=== PATIENT | female | born 1950 | race Caucasian/White ===

== ENCOUNTER 2017-07-05 10:23 | Emergency (ER) | payer MEDICARE, OTHER ==
[~2017-07-05] VITALS: Ht 162.6 cm; Wt 68.0 kg
[~2017-07-05 10:23] MED LIST: ANAS1 PO; ATOR10 PO; CYCL0.05OP OU; EFFEXOR PO; GABA300 PO; LEVOXYL PO; LEVSOD100 PO; LEVSOD75 PO; MULVITMIND PO; Multivitamin1 EAC1 PO; Percocet 5-3251 EACH PO; RXTRAM50 PO; SERT50 PO; STOMUL PO; TRAM50 PO; VENL150ER PO; VENL75ER PO; VITAMIN D3 PO; [UNRECOGNIZED DRUG - CODE] PO
[2017-07-05] MEDS ORDERED: Norco 5-325 Ta1 EACH PO (11:35)
== END 2017-07-05 11:40 | disposition home or self-care (01) ==
LOC: ER 10:23
DX: S20.212A Contusion of left front wall of thorax, initial encounter (principal); E03.9 Hypothyroidism, unspecified; F32.9 Major depressive disorder, single episode, unspecified; Z79.899 Other long term (current) drug therapy; V89.9XXA Person injured in unspecified vehicle accident, initial encounter
CPT/HCPCS: 71046; 99283; J1885

== ENCOUNTER 2019-12-11 06:12 | Day surgery (SDC) | payer MEDICARE, OTHER ==
[~2019-12-11] VITALS: Ht 162.6 cm; Wt 65.6 kg
[~2019-12-11 06:12] MED LIST changes: +ATOR20 PO; +CALCIUM PO; +CENTRUM SILVER1 EAC2 PO; +DICLOFENAC SOD100 G1 TOP; +DOCU100 PO; +NAPR500ERA PO; +Norco 5-325 Ta1 EACH PO; +YUVAFEM10 MCG VAG
--- NOTE | 2019-12-11 09:35 | NUR ---
Dressing to procedure site clean, dry, intact with no visible drainage, swelling, erythema or bruising noted. PT HAS TOLERATED CRACKERS, PUDDING AND WATER. PO PAIN MEDICATIONS PROVIDED. ICE PACK APPLIED. WILL CONTINUE TO MONITOR FOR IMPROVEMENT OF PAIN MANAGEMENT
--- NOTE | 2019-12-11 09:45 | NUR ---
PT REPORTS PAIN IS STILL 10/18. REQUESTED IS TO BE REMOVED C/O FEELING TO HEAVY ON HER BELLY. PT GIVEN SUBLIMAZE 25MCG SLOW IV PUSH.
--- NOTE | 2019-12-11 10:21 | NUR ---
Discharge instructions reviewed with patient. Patient verbalizes understanding. Copy given to patient to take home. Dressing to procedure site clean, dry, intact with no visible drainage, swelling, erythema or bruising noted. Patient States Post-Procedure ride home has been arranged. Discharged via wheelchair to private car for ride home.
--- NOTE | 2019-12-11 10:30 | NUR ---
pt reports pain improving. States pain in 5/10
== END 2019-12-11 10:30 | disposition home or self-care (01) ==
LOC: ORSCMMR 06:12 → ORD 07:30 → ORSCMMR 07:30
PROVIDERS: Surgery
PROC: 0FT44ZZ Resection of Gallbladder, Percutaneous Endoscopic Approach (ICD-10-PCS; principal; 2019-12-11 07:30)
PROC: BF031ZZ Plain Radiography of Gallbladder and Bile Ducts using Low Osmolar Contrast (ICD-10-PCS; principal; 2019-12-11 07:30)
DX: K80.10 Calculus of gallbladder with chronic cholecystitis without obstruction (principal); Z79.899 Other long term (current) drug therapy
CPT/HCPCS: 74300; 88304; A9270-GY; C1729; J0690; J1100; J1885; J2250; J2370; J2405; J2704; J2710; J3010; J7120

== ENCOUNTER 2021-02-13 11:13 | Observation (INO) | payer MEDICARE, OTHER ==
[~2021-02-13] VITALS: Ht 162.6 cm; Wt 69.6 kg
--- NOTE | 2021-02-13 12:16 | NUR ---
Ambulatory in Day Surgery. History, Chart, Medications and Allergies reviewed before start of procedure. Lungs clear T/O to Auscultation. Patient confirms NPO status and agrees with scheduled surgery. Pre-Op teaching done. Pt verbalizes understanding.
--- NOTE | 2021-02-13 17:09 | NUR ---
PT ARRIVED TO THE ROOM AT 1655. PT ALERT AND ORIENTED. SHE RATES HER PAIN AT 2/10 AND STATES PAIN IS TOLERABLE. TOLERATING PO. VSS. WILL MONITOR UNTIL REPORT TO JAVIER PINA.
--- NOTE | 2021-02-13 18:08 | NUR ---
SHIFT SUMMARY PT IS POD#0 FROM R SHAYNA. SHE ARRIVED TO THE ROOM AT 1655 FROM PACU. PT IS TOLERATING PO. PAIN MANAGED. PT IS REGAINING FEELING AND MOVEMENT TO BLE. VSS. WILL MONITOR UNTIL REPORT TO JAVIER PINA.
--- NOTE | 2021-02-14 04:12 | NUR ---
SHIFT SUMMARY POD1 R TOTAL HIP ARTHROPLASTY. AQUACEL IN PLACE C/D/I, POLAR PACK IN PLACE. AMBULATING WELL TO THE BATHROOM WITH STAND BY ASSIST, WALKER AND GAIT BELT. VOIDING WELL. TOLERATING PO INTAKE. PAIN BEING MANAGED PER EMAR. WILL REPORT TO ONCOMING RN.
[2021-02-14 04:23] LABS: BASOPHILS ABSOLUTE AUTO 0.01 K/mm3 (0.00-0.23); BASOPHILS PERCENT AUTO 0 % (0-2); EOSINOPHILS PERCENT AUTO 0 % (0-6); Hematocrit 32.7 % (33.0-51.0); Hemoglobin 11.4 g/dL (11.5-16.0); IMMATURE GRAN ABSOLUTE AUTO 0.05 K/mm3 (0.00-0.10); IMMATURE GRAN PERCENT AUTO 0 % (0-1); LYMPHOCYTES ABSOLUTE AUTO 0.63 K/mm3 (0.84-5.20); LYMPHOCYTES PERCENT AUTO 5 % (21-46); MONOCYTES ABSOLUTE AUTO 0.79 K/mm3 (0.16-1.47); MONOCYTES PERCENT AUTO 7 % (4-13); Mean Corpuscular HGB 31.1 pg (26.0-34.0); Mean Corpuscular HGB Conc 34.9 g/dL (31.5-36.5); Mean Corpuscular Volume 89 fL (80-100); Mean Platelet Volume 9.2 fL (9.1-12.4); NEUTROPHILS ABSOLUTE AUTO 10.18 K/mm3 (1.96-9.15); NEUTROPHILS PERCENT AUTO 87 % (41-73); Platelet Count 231 K/mm3 (150-400); RDW Coefficient Variation 12.5 % (11.7-14.2); RDW Standard Deviation 41.4 fL (35.1-46.3); Red Blood Cell Count 3.66 M/mm3 (3.80-5.20); White Blood Cell Count 11.66 K/mm3 (4.00-11.30)
[2021-02-14 05:27] LABS: Anion Gap 7 mmol/L (6-16); Blood Urea Nitrogen 11 mg/dL (8-24); Bun/Creatinine Ratio 14.3 (12.0-20.0); CO2, Blood 27 mmol/L (21-32); Calcium, Blood 8.8 mg/dL (8.5-10.1); Chloride, Blood 106 mmol/L (98-108); Creatinine, Blood 0.77 mg/dL (0.40-1.00); Glomerular Filtration Rate >60 (60-); Glucose, Blood 127 mg/dL (70-99); Magnesium, Blood 1.9 mg/dL (1.6-2.4); Potassium, Blood 4.7 mmol/L (3.5-5.5); Sodium, Blood 140 mmol/L (136-145)
--- NOTE | 2021-02-14 07:35 | NUR ---
LOW BP PHYSICAL THERAPY ATTEMPTED TO WORK WITH PT THIS AM. SHE REPORTED TO THIS RN THAT BP WAS 60/44 AND PT WAS DIZZY. UPON ENTERING THE ROOM THE PT WAS SITTING IN THE CHAIR WITH HER LEGS IN A DEPENDENT POSITION. SHE WAS PALE AND SLOW TO RESPOND BUT STILL ORIENTED. SHE REPORTED FEELING DIZZY. PT WAS LIFTED FROM THE CHAIR BACK TO BED AND PLACED IN [place] POSITION. BP STARTED TO RECOVER TO 93/64 WITH HR OF 76 AT 0739. NORMAL SALINE STARTED AND ATTEMPTED TO CONTACT DR. PEDRAZA BY PHONE AT 0745. HER OFFICE PHONE WAS CALLED AT 0800. DR. CHEN WAS CALLED AT APPROXIMATELY [address] PEDRAZA RETURNED CALL SHORTLY AFTER THIS R SPOKE WITH DR. CHEN. DR. MCGEE CALLED FOR MEDICAL CONSULT, MESSAGE LEFT AND WAITING FOR A RETURN CALL. PT IS ALERT AND ORIENTED. SITTING UP EATING BREAKFAST. BP IS STILL LOW BUT PT DENIES FEELING DIZZY, PALOR HAS IMPROVED. WILL CONTINUE TO MONITOR.
[2021-02-14] MEDS ORDERED: ACET500 PO (11:42)
[2021-02-14] MEDS ORDERED: ASPI81CH PO (11:43)
[2021-02-14] MEDS ORDERED: OXYC5 PO (11:44)
--- NOTE | 2021-02-14 14:14 | NUR ---
DR. MCGEE NOTIFIED OF AFTERNOON BP OF 105/59 AFTER PHYSICAL THERAPY. PT DID NOT HAVE ANY SYMPTOMS OF LOW BP DURING OR AFTER THERAPY. OTHER VSS. PLAN TO ENCOURAGE PO HYDRATION, MONITOR BP AND FOR SYMPTOMS OF LOW BP, WELL GIVE IV FLUIDS ORDERED. PT NOTIFIED SHE WILL STAY AN ADDITIONAL NIGHT. DR. PEDRAZA NOTIFIED THAT DR. MCGEE WANTS HER TO STAY AN ADDITIONAL NIGHT.
--- NOTE | 2021-02-14 16:36 | NUR ---
SHIFT SUMMARY PT IS POD#1 FROM [facility] WITH DR. PEDRAZA. PAIN HAS BEEN MANAGED WITH TYLENOL AND TORADOL THIS SHIFT. MINIMIZING NARCOTICS. PT HAD EPISODE OF ORTHOSTATIC LOW BP WITH THERAPY THIS AM. SHE RECOVED AFTER FLUID BOLUS WAS GIVEN. PT WAS ALSO STARTED ON NORMAL SALINE AND WILL CONTINUE OVERNIGHT. BP HAS BEEN STABLE AND PT DENIES FEELING DIZZY OR LIGHTHEADED WHEN AMBULATING. HER SBP WAS <110 AFTER THERAPY THIS AFTERNOON. DR. MCGEE WANTS TO MONITOR PT BP OVERNIGHT AND PLAN FOR DC TOMORROW. PT CLEARED PHYSICAL THERAPY. PT TOLERATING PO, VOIDING AND PAIN MANAGED. VSS. WILL CONTINUE TO MONITOR.
--- NOTE | 2021-02-15 05:20 | NUR ---
SHIFT SUMMARY POD2 R TOTAL HIP, AQUACEL C/D/I POLAR PACK IN PLACE. TREATING FOR PAIN PER EMAR. TOLERATING PO INTAKE. VITAL SIGNS STABLE. VOIDING WELL. PLAN FOR DC HOME TODAY. WILL REPORT TO ONCOMING RN.
--- NOTE | 2021-02-15 09:39 | NUR ---
Initial Interview with [facility] [employer] 1. Who did you speak with? Spoke with patient 2. What is the patient's prior level of functions? Independent lives with her . 3. What is the patient's current living situation? Patient lives with her . Patient has a safe and stable home with running water, heat electricity, and sewage. No barriers at this time. 4. 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 Yes, patient able to drive and has transportation. 5. Does patient still drive? Yes, patient able to drive and has transportation. 6. POA/PCP/NOK: PCP-DANA Christensen/NOK-spouse Mehran 7. Discharge goals: -Patient is returning to residence with her Mehran Rivers -DME: patient has a walker, toilet strategic client executive, bath chair in good repair. -Medication Management: self-management -Preferred Pharmacy: [facility] -Housekeeping need: None; patient able to clean her home as needed -Able to cook for self: Yes, patient able to cook 8. List barriers to discharge: None at this time 9. Discharge Plan: Plan is to discharge today to residence; will transport patient to residence. 10. PCP Follow up appointment: Will be scheduled within seven calendar days of discharge. Transition of care will contact patient.
--- NOTE | 2021-02-16 07:55 | NUR ---
Per Dr. Watts discharge appropriate for 02/15/21. Spoke with patient and she is aware of discharge and does not oppose. Patient's provided transportation to their residence. DME: Patient has a walker, bath chair and toilet car cleaner. Transition of care will contact patient to schedule hospital PCP follow up and patient understands if any health concerns or medication management questions, she may contact her PCP. Patient states he has a good support network of methodist family and friends. No barriers to discharge at this time.
== END 2021-02-15 11:55 | disposition home or self-care (01) ==
LOC: ORSCMMR 11:13 → ORD 11:30 → SURS 16:50 → ORSCMMR 16:51 → SURS 02-14 15:17
PROVIDERS: ADMIT Orthopaedic Surgery
PROC: 0SR902A Replacement of Right Hip Joint with Metal on Polyethylene Synthetic Substitute, Uncemented, Open Approach (ICD-10-PCS; principal; 2021-02-13 11:30)
DX: M16.11 Unilateral primary osteoarthritis, right hip (principal); E03.9 Hypothyroidism, unspecified; F32.A Depression, unspecified; D64.9 Anemia, unspecified; I95.9 Hypotension, unspecified; Z79.899 Other long term (current) drug therapy
CPT/HCPCS: 36415; 72170; 80048; 83735; 85025; 97110; 97116; 97162; 97530; A9270; C1776; J0171; J0690; J0735; J1100; J1885; J2250; J2370; J2405; J2704; J2795; J3010; J7030; J7040; J7120

== ENCOUNTER 2021-02-17 15:30 | Emergency (ER) | payer MEDICARE, OTHER ==
[~2021-02-17] VITALS: Ht 162.6 cm; Wt 68.0 kg
[~2021-02-17 15:30] MED LIST changes: +ACET500 PO; +ASPI81CH PO; +OXYC5 PO
[2021-02-17 16:27] LABS: BASOPHILS ABSOLUTE AUTO 0.05 K/mm3 (0.00-0.23); BASOPHILS PERCENT AUTO 1 % (0-2); EOSINOPHILS ABSOLUTE AUTO 0.21 K/mm3 (0.00-0.68); EOSINOPHILS PERCENT AUTO 3 % (0-6); Hematocrit 31.5 % (33.0-51.0); Hemoglobin 10.6 g/dL (11.5-16.0); IMMATURE GRAN ABSOLUTE AUTO 0.03 K/mm3 (0.00-0.10); IMMATURE GRAN PERCENT AUTO 0 % (0-1); LYMPHOCYTES ABSOLUTE AUTO 1.35 K/mm3 (0.84-5.20); LYMPHOCYTES PERCENT AUTO 20 % (21-46); MONOCYTES ABSOLUTE AUTO 0.64 K/mm3 (0.16-1.47); MONOCYTES PERCENT AUTO 9 % (4-13); Mean Corpuscular HGB 30.7 pg (26.0-34.0); Mean Corpuscular HGB Conc 33.7 g/dL (31.5-36.5); Mean Corpuscular Volume 91 fL (80-100); Mean Platelet Volume 9.2 fL (9.1-12.4); NEUTROPHILS ABSOLUTE AUTO 4.59 K/mm3 (1.96-9.15); NEUTROPHILS PERCENT AUTO 67 % (41-73); Platelet Count 300 K/mm3 (150-400); RDW Coefficient Variation 12.8 % (11.7-14.2); RDW Standard Deviation 42.6 fL (35.1-46.3); Red Blood Cell Count 3.45 M/mm3 (3.80-5.20); White Blood Cell Count 6.87 K/mm3 (4.00-11.30)
[2021-02-17 16:49] LABS: Alanine Aminotransfer (ALT/SGP 88 U/L (12-78); Albumin, Blood 2.8 g/dL (3.4-5.0); Albumin/Globulin Ratio 0.9 (0.8-1.8); Alk Phos 82 U/L (50-136); Anion Gap 7 mmol/L (6-16); Aspartate Aminotrans (AST/SGOT 69 U/L (12-37); Bilirubin, Total 0.4 mg/dL (0.1-1.0); Blood Urea Nitrogen 8 mg/dL (8-24); CO2, Blood 28 mmol/L (21-32); Calcium, Blood 8.8 mg/dL (8.5-10.1); Chloride, Blood 106 mmol/L (98-108); Creatinine, Blood 0.73 mg/dL (0.40-1.00); Globulin, Blood 3.2 g/dL (2.2-4.0); Glomerular Filtration Rate >60 (60-); Glucose, Blood 88 mg/dL (70-99); Potassium, Blood 4.1 mmol/L (3.5-5.5); Sodium, Blood 141 mmol/L (136-145); Troponin I <0.015 ng/mL (0.000-0.040)
== END 2021-02-17 18:10 | disposition left against medical advice (07) ==
LOC: ER 15:30
PROVIDERS: Physician Assistant
DX: R07.9 Chest pain, unspecified (principal); R06.02 Shortness of breath; Z96.641 Presence of right artificial hip joint
CPT/HCPCS: 36415; 71260; 80053; 83690; 83880; 84484; 85025; 93005; 93010; 99285-25; Q9967

== ENCOUNTER 2021-06-27 11:49 | Day surgery (SDC) | payer MEDICARE, OTHER ==
[~2021-06-27] VITALS: Ht 162.6 cm; Wt 69.2 kg
[~2021-06-27 11:49] MED LIST changes: +VENL25 PO
--- NOTE | 2021-06-27 12:22 | NUR ---
06/27/21 1222 Anuja Ku CALL LIGHT WITHIN REACH
== END 2021-06-27 13:55 | disposition home or self-care (01) ==
LOC: ORSCSDS 11:49
PROVIDERS: Surgery
PROC: 0DBN8ZX Excision of Sigmoid Colon, Via Natural or Artificial Opening Endoscopic, Diagnostic (ICD-10-PCS; principal; 2021-06-27 13:00)
DX: Z12.11 Encounter for screening for malignant neoplasm of colon (principal); D12.5 Benign neoplasm of sigmoid colon; F32.A Depression, unspecified; E78.5 Hyperlipidemia, unspecified; E03.9 Hypothyroidism, unspecified; Z79.899 Other long term (current) drug therapy
CPT/HCPCS: 88305; J2704; J7120

== ENCOUNTER → 2022-06-22 | Outpatient (CLI) | payer MEDICARE, OTHER | END | disposition home or self-care (01) | LOC: LAB SHORT 09:20 → LAB 09:20 | DX: N39.0 Urinary tract infection, site not specified (principal) | CPT/HCPCS: 87077; 87086; 87186 ==